=== PATIENT | male | born 1975 | race Caucasian/White ===

== ENCOUNTER 2017-11-25 09:37 | Emergency (ER) | payer MEDICAID ==
[~2017-11-25] VITALS: Ht 170.2 cm; Wt 68.0 kg
[2017-11-25] MEDS ORDERED: ALBUTEROL/IPRATROPIUM 2.5MG/0.5MG, 3 ML ONE (10:24)
[2017-11-25] MEDS ORDERED: ALBUTEROL/IPRATROPIUM 2.5MG/0.5MG, 3 ML NPPB ONE (10:30)
[2017-11-25 11:56] LABS: BASOPHILS # (AUTO) 0.02 x10^3/uL (0-0.1); BASOPHILS % (AUTO) 0 % (0-1); EOSINOPHILS # (AUTO) 0.01 x10^3/uL (0-0.4); EOSINOPHILS % (AUTO) 0 % (1-7); LYMPHOCYTES # (AUTO) 2.07 x10^3/uL (1-3.4); LYMPHOCYTES % (AUTO) 21 % (22-44); MD NO; MEAN CORPUSCULAR HEMOGLOBIN 29.4 pg (27.5-34.5); MEAN CORPUSCULAR VOLUME 86.4 fL (81-97); MEAN PLATELET VOLUME 7.8 fL (7.4-10.4); MONOCYTES # (AUTO) 1.37 x10^3/uL (0.2-0.8); MONOCYTES % (AUTO) 14 % (2-9); NEUTROPHILS # (AUTO) 6.47 x10^3/uL (1.8-6.8); NEUTROPHILS % (AUTO) 65 % (42-75); PLATELET COUNT 207 x10^3/uL (130-400); RED BLOOD COUNT 4.51 x10^6/uL (4.38-5.82); RED CELL DISTRIBUTION WIDTH 13.7 % (9.4-14.8)
[2017-11-25] MEDS ORDERED: ACETAMINOPHEN 500 MG TABLET ONE (11:58)
[2017-11-25] MEDS ORDERED: SODIUM CHLORIDE 0.9% 1,000ML IVBOLUS ONE (12:00)
[2017-11-25] MEDS ORDERED: ACETAMINOPHEN 325 MG TABLET PO ONE (12:00)
[2017-11-25] MEDS ORDERED: SODIUM CHLORIDE FLUSH 10ML SYR IVF ONE (12:00)
[2017-11-25 12:04] LABS: ALBUMIN 3.4 g/dL (3.4-5.0); ANION GAP 8 mmol/L (5-15); CALCIUM 8.1 mg/dL (8.5-10.1); CHLORIDE 103 mmol/L (98-107)
[2017-11-25 12:56] VITALS: BP 100/64
== END 2017-11-25 13:38 | disposition home or self-care (01) ==
LOC: ED 12:30
DX: R07.89 Other chest pain (principal); J20.9 Acute bronchitis, unspecified; B97.89 Other viral agents as the cause of diseases classified elsewhere
CPT/HCPCS: 36415; 71046; 80048; 82040; 85025; 93005; 94640; 99285; J7030; J7620

== ENCOUNTER 2018-06-30 19:53 | Emergency (ER) | payer MEDICAID ==
[~2018-06-30] VITALS: Ht 172.7 cm; Wt 60.0 kg
[2018-06-30 20:02] VITALS: BP 105/60
== END 2018-06-30 21:15 | disposition home or self-care (01) ==
LOC: ED 21:12
DX: S22.41XA Multiple fractures of ribs, right side, initial encounter for closed fracture (principal); X58.XXXA Exposure to other specified factors, initial encounter; Y93.89 Activity, other specified; Y92.009 Unspecified place in unspecified non-institutional (private) residence as the place of occurrence of the external cause; Y99.8 Other external cause status
CPT/HCPCS: 99283

== ENCOUNTER 2018-11-07 18:46 | Emergency (ER) | payer MEDICAID ==
[~2018-11-07] VITALS: Ht 170.2 cm; Wt 63.0 kg
--- NOTE | 2018-11-07 18:53 | NUR ---
PERMIT SPECIALIST: NOT IN LOBBY X1
--- NOTE | 2018-11-07 18:55 | NUR ---
NILX2
--- NOTE | 2018-11-07 19:08 | NUR ---
KATHERYN RN: PT IN THE BATHROOM
--- NOTE | 2018-11-07 19:19 | NUR ---
assessment made. chart up for MD to see.
--- NOTE | 2018-11-07 19:34 | NUR ---
PA at bedside.
--- NOTE | 2018-11-07 19:56 | NUR ---
patient to X ray.
--- NOTE | 2018-11-07 20:07 | NUR ---
back from X ray. awaiting result.
--- NOTE | 2018-11-07 20:14 | NUR ---
X ray resulted. chart up for re-eval.
[2018-11-07 20:48] VITALS: BP 131/78
--- NOTE | 2018-11-07 20:48 | NUR ---
re-evaluation done. patient discharged with prescriptions and instruction. verbalized understanding.
== END 2018-11-07 20:50 | disposition home or self-care (01) ==
LOC: ED 20:47
DX: S39.012A Strain of muscle, fascia and tendon of lower back, initial encounter (principal); F17.200 Nicotine dependence, unspecified, uncomplicated; F15.10 Other stimulant abuse, uncomplicated; Z86.19 Personal history of other infectious and parasitic diseases; V49.49XA Driver injured in collision with other motor vehicles in traffic accident, initial encounter; Y93.89 Activity, other specified; Y92.89 Other specified places as the place of occurrence of the external cause; Y99.8 Other external cause status
CPT/HCPCS: 72072; 72110; 99283

== ENCOUNTER 2019-02-03 02:32 | Emergency (ER) | payer MEDICAID ==
[~2019-02-03] VITALS: Ht 170.2 cm; Wt 65.2 kg
[2019-02-03 02:35] VITALS: BP 126/76
[2019-02-03] MEDS ORDERED: OXYcodone/APAP 5/325MG TABLET ONE (03:20)
[2019-02-03] MEDS ORDERED: OXYcodone/APAP 5/325MG TABLET PO ONE (03:30)
--- NOTE | 2019-02-03 04:20 | NUR ---
pt given bus pass, escorted out with security
== END 2019-02-03 04:06 | disposition home or self-care (01) ==
LOC: ED 03:55
DX: G89.29 Other chronic pain (principal); M54.5 Low back pain; F17.200 Nicotine dependence, unspecified, uncomplicated; Z72.9 Problem related to lifestyle, unspecified
CPT/HCPCS: 99283

== ENCOUNTER 2019-02-13 08:54 | Emergency (ER) | payer MEDICAID ==
[~2019-02-13] VITALS: Ht 170.2 cm; Wt 61.9 kg
[2019-02-13 08:59] VITALS: BP 129/76
== END 2019-02-13 09:48 | disposition left against medical advice (07) ==
LOC: ED 09:42
DX: R00.0 Tachycardia, unspecified (principal); Z86.19 Personal history of other infectious and parasitic diseases
CPT/HCPCS: 99281

== ENCOUNTER 2019-02-18 22:50 | Emergency (ER) | payer MEDICAID ==
[~2019-02-18] VITALS: Ht 172.7 cm; Wt 62.5 kg
[2019-02-18 23:05] VITALS: BP 98/61
[2019-02-18] MEDS ORDERED: NEOSPORIN OINT. PKT 1 PACKET ONE (23:27)
--- NOTE | 2019-02-19 00:51 | NUR ---
PT REFUSING DC, REFUSING TO WAKE UP. SECURITY AT BEDSIDE TO DC PT.
== END 2019-02-19 00:54 | disposition home or self-care (01) ==
LOC: ED 23:50
DX: S00.81XA Abrasion of other part of head, initial encounter (principal); S00.31XA Abrasion of nose, initial encounter; S00.83XA Contusion of other part of head, initial encounter; F17.210 Nicotine dependence, cigarettes, uncomplicated; Z72.9 Problem related to lifestyle, unspecified; W17.89XA Other fall from one level to another, initial encounter; Y93.84 Activity, sleeping; Y92.89 Other specified places as the place of occurrence of the external cause; Y99.8 Other external cause status
CPT/HCPCS: 70450; 70486; 99284

== ENCOUNTER 2019-08-21 11:57 | Emergency (ER) | payer SELFPAY ==
[~2019-08-21] VITALS: Ht 170.2 cm; Wt 61.2 kg
[2019-08-21 12:04] VITALS: BP 114/81
[2019-08-21] MEDS ORDERED: LIDOCAINE-MPF 1%, 5ML ONE (12:21)
[2019-08-21] MEDS ORDERED: DIPH,PERTUSS(ACELL),TET VAC/PF 0.5 ML IM-VACC ONE ×2 (12:22→13:00)
--- NOTE | 2019-08-21 12:24 | NUR ---
EPI GIVEN TO PROVIDER FOR ADMINISTRATION
[2019-08-21] MEDS ORDERED: BUPIVACAINE/PF-EPI 0.25% 1:200K SQ ONE (12:30)
--- NOTE | 2019-08-21 12:55 | NUR ---
PT AT PROVIDER DESK, YELLING AND SWEARING AT PROVIDER. PT WAS ASKED TO RETURN TO HIS TREATMENT ROOM MULTIPLE TIMES.
[2019-08-21] MEDS ORDERED: LIDOCAINE-MPF 1%, 5ML INFIL ONE (13:00)
--- NOTE | 2019-08-21 13:00 | NUR ---
WOUND CARE PER LAYNE FRAZIER.
--- NOTE | 2019-08-21 13:05 | NUR ---
SECURITY PRESENT. PT STANDING AT PROVIDER DESK. DC INSTRUCTIONS & SCRIPT PROVIDED.
--- NOTE | 2019-08-21 13:07 | NUR ---
PT LEFT DEPARTMENT PRIOR TO TDAP ADMIN AND PRIOR TO CHART COMPLETION. Addendum: 08/21/19 at 1313 by JAYDA LEFT DEPARTMENT PRIOR TO SPLINT APPLICATION
== END 2019-08-21 13:13 | disposition home or self-care (01) ==
LOC: ED 12:50
DX: L02.511 Cutaneous abscess of right hand (principal); L03.011 Cellulitis of right finger; M79.641 Pain in right hand; F17.200 Nicotine dependence, unspecified, uncomplicated
CPT/HCPCS: 10060; 99283

== ENCOUNTER 2019-11-22 18:30 | Emergency (ER) | payer MEDICAID ==
[~2019-11-22] VITALS: Ht 170.2 cm; Wt 59.0 kg
[2019-11-22 18:35] VITALS: BP 111/77
[2019-11-22 19:57] LABS: BASOPHILS # (AUTO) 0.03 x10^3/uL (0-0.1); BASOPHILS % (AUTO) 0 % (0-1); EOSINOPHILS # (AUTO) 0.07 x10^3/uL (0-0.4); EOSINOPHILS % (AUTO) 1 % (1-7); LYMPHOCYTES # (AUTO) 1.74 x10^3/uL (1-3.4); LYMPHOCYTES % (AUTO) 23 % (22-44); MD NO; MEAN CORPUSCULAR HEMOGLOBIN 28.5 pg (27.5-34.5); MEAN CORPUSCULAR HGB CONC 33.4 g/dL (33.2-36.2); MEAN CORPUSCULAR VOLUME 85.4 fL (81-97); MONOCYTES # (AUTO) 0.86 x10^3/uL (0.2-0.8); MONOCYTES % (AUTO) 12 % (2-9); NEUTROPHILS # (AUTO) 4.74 x10^3/uL (1.8-6.8); NEUTROPHILS % (AUTO) 64 % (42-75); PLATELET COUNT 241 x10^3/uL (130-400); RED BLOOD COUNT 4.82 x10^6/uL (4.38-5.82); RED CELL DISTRIBUTION WIDTH 14.3 % (9.4-14.8)
[2019-11-22 20:08] LABS: ALANINE AMINOTRANSFERASE 95 U/L (12-78); ALBUMIN 3.7 g/dL (3.4-5.0); ANION GAP 4 mmol/L (5-15); CALCIUM 9.1 mg/dL (8.5-10.1); CHLORIDE 102 mmol/L (98-107); CREATININE 0.93 mg/dL (0.7-1.3)
[2019-11-22 20:11] LABS: ALKALINE PHOSPHATASE 103 U/L (45-117); BILIRUBIN,TOTAL 0.3 mg/dL (0.2-1.0); TOTAL PROTEIN 8.9 g/dL (6.4-8.2)
--- NOTE | 2019-11-22 21:04 | NUR ---
pt to room from lobby
[2019-11-22] MEDS ORDERED: NEOSPORIN OINT. PKT 1 PACKET ONE (21:56)
[2019-11-22] MEDS ORDERED: SULFAMETH./TRIMETHOPRIM DS 800MG/160MG TABLET ONE (21:56)
[2019-11-22] MEDS ORDERED: CEPHALEXIN 500 MG CAPSULE ONE (21:56)
[2019-11-22] MEDS ORDERED: SULFAMETH./TRIMETHOPRIM DS 800MG/160MG TABLET PO ONE (22:00)
[2019-11-22] MEDS ORDERED: CEPHALEXIN 500 MG CAPSULE PO ONE (22:00)
== END 2019-11-22 22:23 | disposition home or self-care (01) ==
LOC: ED 21:57
DX: L03.011 Cellulitis of right finger (principal); L03.114 Cellulitis of left upper limb; Z86.19 Personal history of other infectious and parasitic diseases
CPT/HCPCS: 36415; 80053; 85025; 99284

== ENCOUNTER 2019-12-14 10:23 | Emergency (ER) | payer MEDICAID ==
[~2019-12-14] VITALS: Ht 170.2 cm; Wt 60.7 kg
--- NOTE | 2019-12-14 10:26 | NUR ---
NIL X1
--- NOTE | 2019-12-14 10:31 | NUR ---
NILX2
--- NOTE | 2019-12-14 10:38 | NUR ---
NIL X3
[2019-12-14 11:34] VITALS: BP 101/59
== END 2019-12-14 10:56 ==
LOC: ED 10:50
DX: T16.2XXA Foreign body in left ear, initial encounter (principal); H60.502 Unspecified acute noninfective otitis externa, left ear; R05 Cough; R06.02 Shortness of breath; F17.200 Nicotine dependence, unspecified, uncomplicated; X58.XXXA Exposure to other specified factors, initial encounter; Y93.89 Activity, other specified; Y92.89 Other specified places as the place of occurrence of the external cause; Y99.8 Other external cause status
CPT/HCPCS: 71045; 99283

== ENCOUNTER 2020-09-12 06:54 | Emergency (ER) | payer MEDICAID ==
[~2020-09-12] VITALS: Ht 170.2 cm; Wt 68.0 kg
[2020-09-12 06:56] VITALS: BP 121/73
--- NOTE | 2020-09-12 08:11 | NUR ---
TASK RN:Patient/Caregiver given discharge instructions and they have confirmed that they understand the instructions. Patient ambulatory with steady gait.
== END 2020-09-12 08:23 | disposition home or self-care (01) ==
LOC: ED 08:15
DX: L03.115 Cellulitis of right lower limb (principal); L03.116 Cellulitis of left lower limb; Z59.0 Homelessness; F17.210 Nicotine dependence, cigarettes, uncomplicated
CPT/HCPCS: 99281